=== PATIENT | female | born 1935 | race Caucasian/White ===

== ENCOUNTER 2018-01-19 05:17 | Inpatient (IN) | payer MEDICARE ==
[~2018-01-19] VITALS: Ht 157.5 cm; Wt 52.3 kg
[~2018-01-19 05:17] MED LIST: ALBU90OI61 INH; FLUNNIA
[2018-01-19 05:43] LABS: BASOPHILS ABSOLUTE AUTO 0.02 K/mm3 (0.00-0.23); BASOPHILS PERCENT AUTO 0 % (0-2); EOSINOPHILS PERCENT AUTO 0 % (0-6); Hemoglobin 12.7 g/dL (11.5-16.0); IMMATURE GRAN ABSOLUTE AUTO 0.16 K/mm3 (0.00-0.10); IMMATURE GRAN PERCENT AUTO 1 % (0-1); LYMPHOCYTES ABSOLUTE AUTO 0.47 K/mm3 (0.84-5.20); LYMPHOCYTES PERCENT AUTO 3 % (21-46); MONOCYTES ABSOLUTE AUTO 0.58 K/mm3 (0.16-1.47); MONOCYTES PERCENT AUTO 4 % (4-13); Mean Corpuscular HGB 30.3 pg (26.0-34.0); Mean Corpuscular HGB Conc 31.8 g/dL (31.5-36.5); Mean Corpuscular Volume 96 fL (80-100); Mean Platelet Volume 11.2 fL (9.1-12.4); NEUTROPHILS ABSOLUTE AUTO 12.45 K/mm3 (1.96-9.15); NEUTROPHILS PERCENT AUTO 91 % (41-73); Platelet Count 52 K/mm3 (150-400); RDW Coefficient Variation 15.9 % (11.7-14.2); Red Blood Cell Count 4.19 M/mm3 (3.80-5.20); White Blood Cell Count 13.68 K/mm3 (4.00-11.30)
[2018-01-19 05:59] LABS: Alanine Aminotransfer (ALT/SGP 54 U/L (12-78); Albumin, Blood 2.4 g/dL (3.4-5.0); Albumin/Globulin Ratio 0.7 (0.8-1.8); Alk Phos 841 U/L (50-136); Anion Gap 13 mmol/L (6-16); Aspartate Aminotrans (AST/SGOT 226 U/L (12-37); Bilirubin, Total 3.3 mg/dL (0.1-1.0); Blood Urea Nitrogen 34 mg/dL (8-24); Bun/Creatinine Ratio 26.2 (12.0-20.0); CO2, Blood 23 mmol/L (21-32); Calcium, Blood 9.3 mg/dL (8.5-10.1); Chloride, Blood 99 mmol/L (98-108); Globulin, Blood 3.6 g/dL (2.2-4.0); Glomerular Filtration Rate 42 (60-); Glucose, Blood 192 mg/dL (70-99); Potassium, Blood 4.2 mmol/L (3.5-5.5); Sodium, Blood 135 mmol/L (136-145); Troponin I <0.015 ng/mL (0.000-0.040)
[2018-01-19 06:11] LABS: Influenza A Negative (NEGATIVE); Influenza B Negative (NEGATIVE)
[2018-01-19] MEDS ORDERED: SALM50IP INH (06:25)
[2018-01-19] MEDS ORDERED: AMLO5 PO (06:25)
[2018-01-19] MEDS ORDERED: TIOT18 INH (06:25)
[2018-01-19] MEDS ORDERED: FIRAZYR30 MG/3 ML SC (08:27)
[2018-01-19 11:19] LABS: Source, Urine Voided
[2018-01-19 12:06] LABS: Blood, Urine 1+ (Neg); Glucose Qualitative, Urine Neg (Neg); Ketones, Urine 1+ (Neg); Leukocyte Esterase, Urine 1+ (Neg); Nitrite, Urine Neg (Neg); Protein, Urine 2+ (Neg); Urobilinogen, Urine 3+ (Normal)
[2018-01-19 12:48] LABS: Appearance, Urine Cloudy (Clear); Bilirubin, Urine 2+ (Neg); Color, Urine Amber (P-Yellow)
[2018-01-19 12:50] LABS: Bacteria Mod /hpf; Hyaline Casts 0-2 /lpf (0-2); Red Blood Cells, Urine 0-2 /hpf (0-2); Squamous Epithelial Cells Few /hpf (Few)
[2018-01-19 12:51] LABS: Granular Casts Rare /lpf (0)
[2018-01-20 05:30] LABS: BASOPHILS ABSOLUTE AUTO 0.01 K/mm3 (0.00-0.23); BASOPHILS PERCENT AUTO 0 % (0-2); EOSINOPHILS PERCENT AUTO 0 % (0-6); Hematocrit 36.9 % (33.0-51.0); IMMATURE GRAN ABSOLUTE AUTO 0.07 K/mm3 (0.00-0.10); IMMATURE GRAN PERCENT AUTO 1 % (0-1); LYMPHOCYTES ABSOLUTE AUTO 0.13 K/mm3 (0.84-5.20); LYMPHOCYTES PERCENT AUTO 1 % (21-46); MONOCYTES ABSOLUTE AUTO 0.49 K/mm3 (0.16-1.47); MONOCYTES PERCENT AUTO 4 % (4-13); Mean Corpuscular HGB 30.1 pg (26.0-34.0); Mean Corpuscular HGB Conc 32.5 g/dL (31.5-36.5); Mean Platelet Volume 12.8 fL (9.1-12.4); NEUTROPHILS ABSOLUTE AUTO 11.73 K/mm3 (1.96-9.15); NEUTROPHILS PERCENT AUTO 94 % (41-73); RDW Coefficient Variation 15.9 % (11.7-14.2); RDW Standard Deviation 53.2 fL (35.1-46.3); Red Blood Cell Count 3.99 M/mm3 (3.80-5.20); White Blood Cell Count 12.43 K/mm3 (4.00-11.30)
[2018-01-20 05:45] LABS: Mean Corpuscular Volume 93 fL (80-100)
[2018-01-20 05:47] LABS: Platelet Count 40 K/mm3 (150-400)
[2018-01-20 06:19] LABS: Albumin, Blood 2.4 g/dL (3.4-5.0); Albumin/Globulin Ratio 0.8 (0.8-1.8); Bilirubin, Total 3.4 mg/dL (0.1-1.0); Bun/Creatinine Ratio 37.6 (12.0-20.0); Calcium, Blood 9.5 mg/dL (8.5-10.1); Creatinine, Blood 1.33 mg/dL (0.40-1.00); Globulin, Blood 3.2 g/dL (2.2-4.0); Potassium, Blood 4.5 mmol/L (3.5-5.5); Total Protein, Blood 5.6 g/dL (6.4-8.2)
[2018-01-21 05:26] LABS: BASOPHILS ABSOLUTE AUTO 0.02 K/mm3 (0.00-0.23); BASOPHILS PERCENT AUTO 0 % (0-2); EOSINOPHILS PERCENT AUTO 0 % (0-6); Hematocrit 38.5 % (33.0-51.0); Hemoglobin 12.4 g/dL (11.5-16.0); IMMATURE GRAN ABSOLUTE AUTO 0.11 K/mm3 (0.00-0.10); IMMATURE GRAN PERCENT AUTO 1 % (0-1); LYMPHOCYTES ABSOLUTE AUTO 0.23 K/mm3 (0.84-5.20); LYMPHOCYTES PERCENT AUTO 2 % (21-46); MONOCYTES ABSOLUTE AUTO 0.51 K/mm3 (0.16-1.47); MONOCYTES PERCENT AUTO 4 % (4-13); Mean Corpuscular HGB 30.5 pg (26.0-34.0); Mean Corpuscular HGB Conc 32.2 g/dL (31.5-36.5); Mean Corpuscular Volume 95 fL (80-100); Mean Platelet Volume 12.2 fL (9.1-12.4); NEUTROPHILS ABSOLUTE AUTO 12.38 K/mm3 (1.96-9.15); NEUTROPHILS PERCENT AUTO 94 % (41-73); RDW Coefficient Variation 16.7 % (11.7-14.2); RDW Standard Deviation 56.3 fL (35.1-46.3); Red Blood Cell Count 4.06 M/mm3 (3.80-5.20); White Blood Cell Count 13.25 K/mm3 (4.00-11.30)
[2018-01-21 05:33] LABS: Platelet Count 40 K/mm3 (150-400)
[2018-01-21 06:37] LABS: Albumin, Blood 2.3 g/dL (3.4-5.0); Albumin/Globulin Ratio 0.7 (0.8-1.8); Bilirubin, Total 3.8 mg/dL (0.1-1.0); Bun/Creatinine Ratio 32.9 (12.0-20.0); Calcium, Blood 9.3 mg/dL (8.5-10.1); Creatinine, Blood 2.22 mg/dL (0.40-1.00); Globulin, Blood 3.2 g/dL (2.2-4.0); Total Protein, Blood 5.5 g/dL (6.4-8.2)
[2018-01-21 06:40] LABS: Potassium, Blood 6.3 mmol/L (3.5-5.5)
[2018-01-21 08:46] LABS: Albumin, Blood 2.3 g/dL (3.4-5.0); Anion Gap 9 mmol/L (6-16); Blood Urea Nitrogen 77 mg/dL (8-24); Bun/Creatinine Ratio 33.6 (12.0-20.0); CO2, Blood 26 mmol/L (21-32); Calcium, Blood 9.1 mg/dL (8.5-10.1); Chloride, Blood 96 mmol/L (98-108); Creatinine, Blood 2.29 mg/dL (0.40-1.00); Glomerular Filtration Rate 22 (60-); Glucose, Blood 107 mg/dL (70-99); Phosphorus, Blood 4.8 mg/dL (2.5-4.9); Potassium, Blood 5.8 mmol/L (3.5-5.5); Sodium, Blood 131 mmol/L (136-145)
[2018-01-21 08:51] LABS: International Normalized Ratio 1.54; Prothrombin Time Results 16.2 Sec (9.7-11.5)
== END 2018-01-21 23:07 | DRG 871 ==
LOC: ER 05:17 → MEDS 06:25
PROVIDERS: Emergency Medicine; Internal Medicine
DX: A41.9 Sepsis, unspecified organism (principal); Z51.5 Encounter for palliative care; J96.01 Acute respiratory failure with hypoxia; J18.9 Pneumonia, unspecified organism; G92 Toxic encephalopathy; N17.9 Acute kidney failure, unspecified; C78.7 Secondary malignant neoplasm of liver and intrahepatic bile duct; C22.8 Malignant neoplasm of liver, primary, unspecified as to type; J44.0 Chronic obstructive pulmonary disease with (acute) lower respiratory infection; J44.1 Chronic obstructive pulmonary disease with (acute) exacerbation; D84.1 Defects in the complement system; K43.9 Ventral hernia without obstruction or gangrene; I10 Essential (primary) hypertension
CPT/HCPCS: 36415; 71046; 71250; 74176; 76700; 80053; 80069; 81001; 83880; 84484; 85025; 85610; 87040; 87081; 87086; 87804; 93005; 93010; 93306; 94640; 94760; 96374; 99285; J1650; J2060; J2310; J2405; J2930; J3010; J7030